=== PATIENT | female | born 1980 | race Caucasian/White ===

== ENCOUNTER 2016-12-06 09:05 | Emergency (ER) | payer MEDICAID ==
[~2016-12-06] VITALS: Ht 154.9 cm; Wt 65.8 kg
[~2016-12-06 09:05] MED LIST: DOXYCYCLINE MO100 MG PO; LACTINEX1 TAB.CHEW PO; MOTRIN800 M1 PO; [UNRECOGNIZED DRUG - OTHER]
[2016-12-06 09:27] VITALS: BP 115/76
--- NOTE | 2016-12-06 09:35 | NUR ---
Patient ambulated to bed 4. RN evaluating patient at bedside.
[2016-12-06] MEDS ORDERED: NACL 0.9% 1,000 ML IV SCH (09:42)
[2016-12-06] MEDS ORDERED: FAMOTIDINE 20 MG/2 ML VIAL IVP ONE (09:45)
[2016-12-06] MEDS ORDERED: ONDANSETRON 4 MG/2 ML VIAL IVP ONE (09:45)
--- NOTE | 2016-12-06 09:45 | NUR ---
PATIENT PRESENTS TO ED WITH C/O LOWER ABD PAIN X4 DAYS WITH FEVER . DENIES N/V/D; SKIN IS PINK/WARM/DRY; AAOX4 WITH EVEN AND STEADY GAIT; LUNGS CLEAR BL; HR EVEN AND REGULAR; PT DENIES ANY FEVER, CP, SOB, OR COUGH AT THIS TIME; PATIENT STATES PAIN OF 10/10 AT THIS TIME; VSS; PATIENT POSITIONED FOR COMFORT; HOB ELEVATED; BEDRAILS UP X2; BED DOWN. ER MD MADE AWARE OF PT STATUS.
[2016-12-06] MEDS ORDERED: MORPHINE SULFATE 4 MG/ML SYR IVP ONE (09:50)
--- NOTE | 2016-12-06 10:54 | NUR ---
Patient taken to CT scan via gurney by [facility].
[2016-12-06] MEDS ORDERED: NACL 0.9% 1,000 ML IV ONE (12:25)
[2016-12-06] MEDS ORDERED: cefTRIAXone 1,000 MG VIAL ONE (12:40)
[2016-12-06] MEDS ORDERED: ACETAMINOPHEN EXTRA STRENGTH 500 MG TAB PO ONE (13:40)
[2016-12-06 14:38] VITALS: BP 132/84
--- NOTE | 2016-12-06 14:38 | NUR ---
Patient discharged with v/s stable. Written and verbal after care instructions given and explained. Patient alert, oriented and verbalized understanding of instructions. Ambulatory with steady gait. All questions addressed prior to discharge. ID band removed. Patient advised to follow up with PMD. Rx of TYLENOL, LEVAQUIN given. Patient educated on indication of medication including possible reaction and side effects. Opportunity to ask questions provided and answered.
== END 2016-12-06 14:38 | disposition home or self-care (01) ==
LOC: MED 09:05
DX: N12 Tubulo-interstitial nephritis, not specified as acute or chronic (principal)
CPT/HCPCS: 36415; 74177; 80053; 81001; 81025; 82150; 83605; 83690; 85025; 87040; 87086; 87186; 96361; 96365; 96375; 99285; J0696; J2270; J2405; J3490; J7030; J7060; Q9967